=== PATIENT | male | born 1960 | race Two or more races ===

== ENCOUNTER 2017-04-03 11:33 | Emergency (ER) | payer OTHER ==
[~2017-04-03] VITALS: Ht 157.5 cm; Wt 64.2 kg
[2017-04-03 11:43] VITALS: Ht 157.5 cm; Wt 64.2 kg
[2017-04-03 14:42] VITALS: BP 145/98
== END 2017-04-03 14:42 | disposition home or self-care (01) ==
LOC: ED 11:33
DX: S02.82XA Fracture of other specified skull and facial bones, left side, initial encounter for closed fracture (principal); S02.40FA Zygomatic fracture, left side, initial encounter for closed fracture; W22.01XA Walked into wall, initial encounter; Y93.89 Activity, other specified; Y99.8 Other external cause status; Y92.89 Other specified places as the place of occurrence of the external cause